=== PATIENT | female | born 1985 | race Caucasian/White ===

== ENCOUNTER 2020-11-17 01:31 | Emergency (ER) | payer MEDICARE, OTHER ==
[~2020-11-17 01:31] MED LIST: LEVAQUIN750 MG PO; MEDROL 4MG DOSEP4 MG PO; ONDANSETRON HCL4 MG PO
== END 2020-11-17 02:32 | disposition home or self-care (01) ==
LOC: FER 01:31
DX: S81.012A Laceration without foreign body, left knee, initial encounter (principal); F17.200 Nicotine dependence, unspecified, uncomplicated; W26.8XXA Contact with other sharp object(s), not elsewhere classified, initial encounter

== ENCOUNTER 2021-05-11 13:33 | Emergency (ER) | payer MEDICARE ==
[2021-05-11 15:05] LABS: BASOPHIL 0.7 % (0-2); EOSINOPHIL 0.9 % (0-5); HCT 42.2 % (37.0-47.0); HGB 14.4 g/dl (12.5-16.0); LYMPHOCYTE 30.6 % (15-48); MCH 32.8 pg (25.0-31.0); MCHC 34.1 g/dL (32.0-36.0); MCV 96.1 fL (78.0-100.0); MONOCYTE 6.5 % (0-12); MPV 10.6 fL (6.0-9.5); NRBC 0; PLT 287 K/uL (150-400); RBC 4.39 M/uL (4.20-5.40); RDW 11.5 % (11.5-14.0); WBC 5.8 K/uL (4.0-10.5)
[2021-05-11 15:10] LABS: INR 0.99 (0.9-1.2); PROTHROMBIN TIME 12.5 SECONDS (11.8-13.4); PTT 28.6 SECONDS (24.4-34.7)
[2021-05-11 15:11] LABS: D-DIMER < 0.27 ug/mLFEU (0.00-0.41)
[2021-05-11 15:29] LABS: ALBUMIN 4.6 g/dL (3.4-5.0); BILIRUBIN - TOTAL 0.4 mg/dL (0.2-1.0); BUN/CREAT RATIO (CALC) 16.7 RATIO; CREATININE 0.84 mg/dL (0.51-0.95); GLOBULIN (CALCULATION) 3.2 g/dL; POTASSIUM 3.8 mmol/L (3.5-5.1); TOTAL PROTEIN 7.8 g/dL (6.4-8.2)
[2021-05-11 21:21] LABS: BILIRUBIN NEGATIVE (NEGATIVE); BLOOD NEGATIVE Ery/uL (NEGATIVE); CLARITY CLEAR (CLEAR); COLOR YELLOW (YELLOW); GLUCOSE (U) NORMAL (NORMAL); LEUKOCYTES NEGATIVE Leu/uL (NEGATIVE); NITRITE NEGATIVE (NEGATIVE); PROTEIN NEGATIVE (NEGATIVE); UROBILINOGEN 0.2 mg/dL (0.2-1.0); pH 7.5 (5.0-9.0)
[2021-05-12] MEDS ORDERED: ZPAK PO (00:09)
[2021-05-12] MEDS ORDERED: MEDROL 4MG DOSEP4 MG PO (00:09)
== END 2021-05-12 00:40 | disposition home or self-care (01) ==
LOC: FER 13:33
PROVIDERS: Emergency Medicine; Nurse Practitioner Family
DX: R06.02 Shortness of breath (principal); R11.0 Nausea; J45.909 Unspecified asthma, uncomplicated; F17.210 Nicotine dependence, cigarettes, uncomplicated; Z88.8 Allergy status to other drugs, medicaments and biological substances; Z20.822 Contact with and (suspected) exposure to COVID-19
CPT/HCPCS: 36415; 71045; 71275; 80053; 81003; 85025; 85379; 85610; 85730; J1100; J2405; J7030; Q9967; U0002

== ENCOUNTER 2021-09-08 12:06 | Emergency (ER) | payer MEDICARE ==
[~2021-09-08 12:06] MED LIST changes: +ZPAK PO
[2021-09-08] MEDS ORDERED: AZITHROMYCIN250 MG PO (13:59)
== END 2021-09-08 14:16 | disposition home or self-care (01) ==
LOC: FER 12:06
DX: J18.9 Pneumonia, unspecified organism (principal); F17.200 Nicotine dependence, unspecified, uncomplicated
CPT/HCPCS: 71111

== ENCOUNTER 2021-10-22 22:43 | Emergency (ER) | payer MEDICARE ==
[~2021-10-22 22:43] MED LIST changes: +AZITHROMYCIN250 MG PO
[2021-10-23 00:39] LABS: BASOPHIL 0.1 % (0-2); EOSINOPHIL 0.1 % (0-5); HCT 41.9 % (37.0-47.0); HGB 14.4 g/dl (12.5-16.0); MCH 32.8 pg (25.0-31.0); MCHC 34.4 g/dL (32.0-36.0); MCV 95.4 fL (78.0-100.0); MONOCYTE 6.6 % (0-12); MPV 10.4 fL (6.0-9.5); NRBC 0; PLT 370 K/uL (150-400); RBC 4.39 M/uL (4.20-5.40); RDW 11.5 % (11.5-14.0); WBC 9.1 K/uL (4.0-10.5)
[2021-10-23 00:50] LABS: ALBUMIN 4.3 g/dL (3.4-5.0); BILIRUBIN - TOTAL 0.5 mg/dL (0.2-1.0); BUN/CREAT RATIO (CALC) 18.9 RATIO; CREATININE 0.9 mg/dL (0.51-0.95); POTASSIUM 3.6 mmol/L (3.5-5.1); TOTAL PROTEIN 7.3 g/dL (6.4-8.2)
[2021-10-23] MEDS ORDERED: MEDROL 4MG DOSEP4 MG PO (01:14)
== END 2021-10-23 01:27 | disposition home or self-care (01) ==
LOC: FER 22:43
PROVIDERS: Internal Medicine
DX: L50.0 Allergic urticaria (principal); F17.210 Nicotine dependence, cigarettes, uncomplicated; Z88.8 Allergy status to other drugs, medicaments and biological substances
CPT/HCPCS: 36415; 80053; 83690; 84145; 85025; 96372; J0171; J1200; J2930

== ENCOUNTER 2021-10-23 09:30 | Emergency (ER) | payer MEDICARE | END 2021-10-23 10:00 | disposition home or self-care (01) | LOC: FER 09:30 | DX: R21 Rash and other nonspecific skin eruption (principal); F17.200 Nicotine dependence, unspecified, uncomplicated; Z88.8 Allergy status to other drugs, medicaments and biological substances; Z28.310 Unvaccinated for COVID-19 | CPT/HCPCS: 99282 ==